=== PATIENT | male | born 1950 | race Caucasian/White ===

== ENCOUNTER 2016-05-08 05:58 | Emergency (ER) | payer OTHER, BC ==
[~2016-05-08] VITALS: Ht 170.2 cm; Wt 103.2 kg
[~2016-05-08 05:58] MED LIST: BENICAR HCT 201 EACH PO; FISH OIL 1,0001 EACH PO; FUROSEMIDE40 MG PO; GEMFIBROZIL600 MG PO; GLIMEPIRIDE1 MG PO; IBUPROFEN800 MG PO; LOSARTAN POTAS100 MG PO; METOPROLOL TART50 MG PO; MULTIVITAMIN; NAPROSYN250 MG PO; SIMVASTATIN10 MG PO
[2016-05-08 06:30] LABS: HEMATOCRIT 42.1 % (38.0-50.0); MCHC 32.5 G/DL (30.0-36.0); MCV 85.9 FL (86-99); MEAN PLAT.VOLUME 9.5 uM^3 (9.0-12.4); PLATELET COUNT 261 K/uL (156-360); RBC DIS.WIDTH-CV 13.5 % (11.8-14.6); RBC DIS.WIDTH-SD 41.5 % (39-53); WHITE BLOOD COUNT 8.2 K/uL (4.1-10.2)
[2016-05-08 06:37] LABS: CHLORIDE 107 mEq/L (99-109); POTASSIUM 3.9 mEq/L (3.7-5.4); SODIUM 143 mEq/L (136-147)
[2016-05-08 06:39] LABS: GLUCOSE 97 mg/dL (70-99)
[2016-05-08 06:40] LABS: ANION GAP 9 MEQ/L (2-14)
[2016-05-08 06:43] LABS: GFR ESTIMATE (CALCULATED) > 59 mL/min/
[2016-05-08 06:44] LABS: UREA NITROGEN (BUN) 21 mg/dL (9-23)
[2016-05-08 06:50] LABS: TROP-I INTERPRETATION NEGATIVE; TROPONIN-I 0.02 ng/mL (0.0-0.30)
[2016-05-08 10:21] LABS: TROP-I INTERPRETATION NEGATIVE; TROPONIN-I < 0.01 ng/mL (0.0-0.30)
[2016-05-08 13:13] VITALS: BP 141/65
== END 2016-05-08 13:17 | disposition home or self-care (01) ==
LOC: EME 05:58
PROVIDERS: Emergency Medicine
DX: R07.89 Other chest pain (principal); I10 Essential (primary) hypertension; E78.5 Hyperlipidemia, unspecified; E11.9 Type 2 diabetes mellitus without complications; I25.2 Old myocardial infarction
CPT/HCPCS: 71020; 80048; 84484; 85027; 93005; 99281; 99284